=== PATIENT | female | born 1950 | race Caucasian/White ===

== ENCOUNTER 2019-02-17 11:06 | Day surgery (SDC) | payer MEDICARE ==
[~2019-02-17] VITALS: Ht 162.6 cm; Wt 104.5 kg
[2019-02-17] MEDS ORDERED: MECL25TA4 PO (11:16)
[2019-02-17] MEDS ORDERED: ATOR-2 PO (11:16)
[2019-02-17] MEDS ORDERED: INSU100I34 SQ (11:16)
[2019-02-17] MEDS ORDERED: EMPA25TA PO (11:16)
[2019-02-17] MEDS ORDERED: GABA100C PO (11:16)
[2019-02-17] MEDS ORDERED: LISI40TA PO (11:16)
[2019-02-17] MEDS ORDERED: AMLO-150 PO (11:16)
[2019-02-17] MEDS ORDERED: ESCI5TAB7 PO (11:16)
[2019-02-17] MEDS ORDERED: ASPI81TA45 PO (11:16)
[2019-02-17] MEDS ORDERED: METF10007 PO (11:16)
[2019-02-17] MEDS ORDERED: ACET650S21 PO (11:16)
[2019-02-17] MEDS ORDERED: NITR0.4T28 SL (11:16)
[2019-02-17] MEDS ORDERED: PLEASE ENTER ALLERGIES MC SCH (11:30)
[2019-02-17] MEDS ORDERED: DIPHENHYDRAMINE 50 MG/ML, 1ML IVPush ONE (11:30)
[2019-02-17] MEDS ORDERED: methylPREDNISolone SOD SUCC 125 MG/2 ML IVPush ONE (11:30)
[2019-02-17] MEDS ORDERED: PLEASE ENTER HEIGHT AND WEIGHT MC SCH ×2 (11:30→12:00)
[2019-02-17 11:34] VITALS: BP 132/75
[2019-02-17] MEDS ORDERED: methylPREDNISolone SOD SUCC 125 MG/2 ML ONE ×2 (12:10→12:26)
[2019-02-17] MEDS ORDERED: DIPHENHYDRAMINE 50 MG/ML, 1ML ONE ×2 (12:10→12:26)
[2019-02-17] MEDS ORDERED: MIDAZOLAM 1 MG/ML, 5ML ONE (12:25)
[2019-02-17] MEDS ORDERED: FENTANYL PF 100 MCG/2ML ONE (12:25)
[2019-02-17] MEDS ORDERED: BIVALIRUDIN 250 MG ONE (12:26)
[2019-02-17] MEDS ORDERED: VERAPAMIL 2.5 MG/ML, 2ML ONE ×3 (12:26→13:21)
[2019-02-17] MEDS ORDERED: NITROGLYCERIN 5 MG/ML, 10ML ONE (12:26)
[2019-02-17] MEDS ORDERED: HEPARIN 1,000 UNITS/ML, 10ML ONE (12:26)
[2019-02-17] MEDS ORDERED: LIDOCAINE 2%, 20ML ONE (12:26)
[2019-02-17] MEDS ORDERED: ONDANSETRON 2MG/ML, 2ML ONE (12:45)
== END 2019-02-17 17:17 | disposition home or self-care (01) ==
LOC: CACL 11:06
PROVIDERS: ATTEND Internal Medicine Cardiovascular Disease
DX: I25.10 Atherosclerotic heart disease of native coronary artery without angina pectoris (principal); I10 Essential (primary) hypertension; E11.9 Type 2 diabetes mellitus without complications; D64.9 Anemia, unspecified; G43.909 Migraine, unspecified, not intractable, without status migrainosus; E78.5 Hyperlipidemia, unspecified; E11.42 Type 2 diabetes mellitus with diabetic polyneuropathy; Z86.73 Personal history of transient ischemic attack (TIA), and cerebral infarction without residual deficits; Z88.8 Allergy status to other drugs, medicaments and biological substances; Z91.013 Allergy to seafood; Z79.84 Long term (current) use of oral hypoglycemic drugs
CPT/HCPCS: 82962; 93458; 93571; 93572; 99156; 99157; C1760; C1769; C1894; J0583; J1200; J1644; J2250; J2930; J3010; J3490; Q9967; J2405

== ENCOUNTER 2019-02-26 08:20 | Observation (INO) | payer MEDICARE ==
[~2019-02-26] VITALS: Ht 165.1 cm; Wt 95.2 kg
[~2019-02-26 08:20] MED LIST: ACET650S21 PO; AMLO-150 PO; ASPI81TA45 PO; ATOR-2 PO; EMPA25TA PO; ESCI5TAB7 PO; GABA100C PO; INSU100I34 SQ; LISI40TA PO; MECL25TA4 PO; METF10007 PO; NITR0.4T28 SL
[2019-02-26] MEDS ORDERED: SODIUM CHLORIDE 0.9% 1,000 ML IV SCH (08:22)
[2019-02-26] MEDS ORDERED: DIPHENHYDRAMINE 50 MG/ML, 1ML IVPush ONE (08:30)
[2019-02-26] MEDS ORDERED: methylPREDNISolone SOD SUCC 125 MG/2 ML IVPush ONE (08:30)
[2019-02-26 08:57] VITALS: BP 133/56
[2019-02-26] MEDS ORDERED: PLEASE ENTER HEIGHT AND WEIGHT MC SCH (09:00)
[2019-02-26 09:29] LABS: ANION GAP 7 mmol/L (5-15); CALCIUM 9.2 mg/dL (8.5-10.1); CHLORIDE 109 mmol/L (98-107)
[2019-02-26] MEDS ORDERED: DIPHENHYDRAMINE 50 MG/ML, 1ML ONE (09:42)
[2019-02-26] MEDS ORDERED: BIVALIRUDIN 250 MG ONE ×2 (10:05→11:17)
[2019-02-26] MEDS ORDERED: FENTANYL PF 100 MCG/2ML ONE (10:05)
[2019-02-26] MEDS ORDERED: VERAPAMIL 2.5 MG/ML, 2ML ONE (10:05)
[2019-02-26] MEDS ORDERED: HEPARIN 1,000 UNITS/ML, 10ML ONE (10:05)
[2019-02-26] MEDS ORDERED: MIDAZOLAM 1 MG/ML, 5ML ONE (10:05)
[2019-02-26] MEDS ORDERED: TICAGRELOR 90 MG TABLET ONE (10:05)
[2019-02-26] MEDS ORDERED: LIDOCAINE 2%, 20ML ONE (10:06)
[2019-02-26] MEDS ORDERED: PRASUGREL 10 MG TABLET ONE (10:15)
[2019-02-26] MEDS ORDERED: methylPREDNISolone SOD SUCC 125 MG/2 ML ONE (10:15)
[2019-02-26] MEDS ORDERED: CLOPIDOGREL 300 MG TABLET ONE (10:29)
[2019-02-26] MEDS: SODIUM CHLORIDE 0.9% 1,000 ML IV SCH ×2 (11:38→21:19)
[2019-02-26] MEDS ORDERED: ONDANSETRON 2MG/ML, 2ML IVPush PRN (12:00)
[2019-02-26] MEDS ORDERED: ACETAMINOPHEN 325 MG TABLET PO PRN (12:00)
[2019-02-26] MEDS ORDERED: ACETAMINOPHEN 650 MG/20.3 ML UDC PO PRN (12:00)
[2019-02-26] MEDS ORDERED: ZOLPIDEM 5MG TABLET PO PRN (12:00)
[2019-02-26] MEDS ORDERED: NITROGLYCERIN 0.4 MG BOTTLE (25 TABS) SL PRN (12:00)
[2019-02-26] MEDS ORDERED: MECLIZINE HCL 25 MG TABLET PO PRN (12:00)
[2019-02-26] MEDS: GABAPENTIN 100 MG CAPSULE PO SCH ×2 (17:47→21:18)
[2019-02-26 17:59] LABS: TROPONIN I < 0.015 ng/mL (0.000-0.045)
[2019-02-26 20:41] VITALS: BP 110/71
[2019-02-26] MEDS ORDERED: INSULIN GLARGINE 100 UNITS/ML, PEN SQ-INSULIN SCH (21:00)
[2019-02-26] MEDS ORDERED: ATORVASTATIN 80 MG TABLET PO SCH (21:00)
[2019-02-27 01:57] VITALS: BP 100/62
[2019-02-27] MEDS: SODIUM CHLORIDE 0.9% 1,000 ML IV SCH (02:59)
[2019-02-27 04:50] LABS: ANION GAP 7 mmol/L (5-15); CALCIUM 8.5 mg/dL (8.5-10.1); CHLORIDE 108 mmol/L (98-107); CREATININE 0.63 mg/dL (0.55-1.02)
[2019-02-27 07:26] VITALS: BP 101/62
[2019-02-27 08:37] VITALS: BP 114/60
[2019-02-27] MEDS: GABAPENTIN 100 MG CAPSULE PO SCH (08:38)
[2019-02-27] MEDS ORDERED: CLOP75TA PO (08:39)
[2019-02-27] MEDS ORDERED: CITALOPRAM 10 MG TABLET PO SCH (09:00)
[2019-02-27] MEDS ORDERED: LISINOPRIL 40 MG TABLET PO SCH (09:00)
[2019-02-27] MEDS ORDERED: CLOPIDOGREL 75 MG TABLET PO SCH (09:00)
[2019-02-27] MEDS ORDERED: ASPIRIN 81 MG TABLET EC PO SCH ×2 (09:00)
[2019-02-27] MEDS ORDERED: AMLODIPINE 5 MG TABLET PO SCH (09:00)
== END 2019-02-27 10:50 | disposition home or self-care (01) ==
LOC: CACL 08:20 → 5SO 11:55 → CACL 12:25 → 5SO 12:26 → DCLOUNGE 02-27 10:22
PROVIDERS: ADMIT Internal Medicine Cardiovascular Disease; ATTEND Internal Medicine Cardiovascular Disease
DX: I25.10 Atherosclerotic heart disease of native coronary artery without angina pectoris (principal); G89.29 Other chronic pain; D64.9 Anemia, unspecified; E11.40 Type 2 diabetes mellitus with diabetic neuropathy, unspecified; I10 Essential (primary) hypertension; E78.5 Hyperlipidemia, unspecified
CPT/HCPCS: 36415; 80048; 82962; 84484; 85014; 85018; 93005; 93454; 96372; 96374; 96375; 99156; 99157; C1725; C1760; C1769; C1874; C1887; C1894; C9600; G0378; J0583; J1200; J1815; J2250; J2405; J2930; J3010; J3490; J7030; Q9967; J1644

== ENCOUNTER 2019-07-06 14:00 | Outpatient (CLI) | payer MEDICARE | END 2019-07-06 23:59 | disposition home or self-care (01) | LOC: CVU 14:00 | PROVIDERS: ATTEND Registered Nurse | DX: I65.23 Occlusion and stenosis of bilateral carotid arteries (principal) | CPT/HCPCS: 93880 ==